=== PATIENT | female | born 1990 | race Caucasian/White ===

== ENCOUNTER 2020-08-17 15:55 | Emergency (ER) | payer BC, SELFPAY ==
[~2020-08-17 15:55] MED LIST: Iopamidol-370 76% 500 ML 1 ML ONE
[2020-08-17 17:53] LABS: #Basophils 0.1 thou/uL (0.0-0.2); #Eosinphils 0.4 thou/uL (0.0-0.7); #Lymphocytes 4.2 thou/uL (1.20-3.40); #Monocytes 1.1 thou/uL (0.11-0.59); #Neutrophils 10.3 thou/uL (1.40-6.50); %Basophils 0.7 % (0.0-1.0); %Eosinophils 2.6 % (0.0-10.0); %Monocytes 6.8 % (0.0-10.0); %Neutrophils 63.8 % (42.0-75.0); Hemoglobin 14.5 g/dL (12.0-16.0); Mean Corpuscular HGB CONC 34.5 g/dL (32.0-36.0); Mean Corpuscular Hemoglobin 34.8 pg (27.0-31.0); Mean Platelet Volume 7.5 fL (7.4-10.4); Platelet Count 324 thou/uL (130-400); RBC Distribution Width 12.2 % (11.5-14.5); Red Blood Cell (RBC) Count 4.16 mill/uL (4.20-5.40); White Blood Cell (WBC) Count 16.1 thou/uL (4.8-10.8)
[2020-08-17 18:09] LABS: BHCG - Serum Negative (NEGATIVE); Pregs Control Background? CLEAR/WHITE (CLR/WHITE); Pregs Control Bar Appear? YES (CONTROL BAR)
[2020-08-17 18:18] LABS: ALT (SGPT) 14 U/L (8-55); AST (SGOT) 17 U/L (5-34); Albumin 3.9 g/dL (3.5-5.0); Alkaline Phosphatase 112 U/L (40-110); Anion Gap 15 mmol/L (10-20); BUN (Urea Nitrogen) 8 mg/dL (7.0-18.7); Bilirubin, Total 0.4 mg/dL (0.2-1.2); Calc. Creatinine Clearance 0 mL/min (70-130); Calcium 8.5 mg/dL (7.8-10.44); Carbon Dioxide 23 mmol/L (22-29); Chloride 107 mmol/L (98-107); Globulin 3.3 g/dL (2.4-3.5); Glucose 88 mg/dL (70-105); Potassium 3.5 mmol/L (3.5-5.1); Protein, Total 7.2 g/dL (6.0-8.3); Sodium 141 mmol/L (136-145)
[2020-08-17 18:38] LABS: Bilirubin Negative (Negative); Blood, Urine 1+ (Negative); Clarity Extra Turbid (Clear); Glucose, Urine (Dipstick) Normal (Negative); Ketone, Urine Negative (Negative); Leukocyte 500 Leu/uL (Negative); Nitrite Negative (Negative); Protein, Urine (Dipstick) 200 mg/dL (Neg-Trace); Specific Gravity, Urine 1.026 (1.002-1.036); Squamous Epithelial None Seen HPF (0-3); WBC/HPF Greater than 50 HPF (0-3)
[2020-08-17 18:43] LABS: Bacteria/HPF 1+ HPF (None Seen)
[2020-08-17] MEDS ORDERED: cefTRIAXone\\ROCEPHIN 1 GM VIAL ONE (19:39)
[2020-08-17] MEDS ORDERED: Ondansetron PF 4 MG/2 ML Vial ONE (20:13)
[2020-08-17] MEDS ORDERED: Morphine 4 MG/ML VIAL ONE (20:13)
--- NOTE | 2020-08-17 21:46 | CT ---
CT ABDOMEN AND PELVIS WITH IV CONTRAST 08/17/2020 CLINICAL INFORMATION: Right lower quadrant abdominal pain. COMPARISON: 09/02/2015. Technique: Multiple contiguous axial CT images are obtained through the abdomen and pelvis with IV contrast. Cor onal reformatted images are provided. FINDINGS: Lower Chest: Lung bases are clear. Vessels: Abdominal aorta is normal in caliber. Abdomen: Portal vein:Patent Gallbladder: Within normal limits for CT imaging. Liver: within normal limits. Spleen: within normal limits. Pancreas: within normal limits. Adrenals: within normal limits. Kidneys: There is suggestion of mild renal cortical thinning on the left, and the left kidney is smal ler in size compared to the right. However, this is a stable finding. There is no hydronephrosis Bowel: Normal caliber. On oval-shaped radiopaque density is seen in the ascending colon likely due to ingested material. Appendix: The appendix is visualized and normal in caliber. Peritoneum: No ascites or free air; no fluid collection. Mesentery and Retroperitoneum: No enlarged mesenteric or retroperitoneal lymph nodes. Abdominal Wall: within normal limits. Pelvis: Reproductive Organs: A 2 cm hypodense lesion with enhancing rim is present in the left ovary which ma y represent a small involuting cyst. A few tiny subcentimeter hypodense foci are seen within the region of the uterine fundus also seen on study of 06/30/2016 and could represent tiny uterine fibroi ds. Bladder: within normal limits. Bones: No suspicious lytic or sclerotic osseous lesions. IMPRESSION: 1. No acute findings in the abdomen or pelvis. 2. Incidental findings as described above.
[2020-08-17] MEDS ORDERED: HYDROcodone/Acetaminophen 5/325 mg Tablet ONE (22:18)
== END 2020-08-17 22:22 | disposition home or self-care (01) ==
LOC: ERS 15:55
DX: N39.0 Urinary tract infection, site not specified (principal); Z79.899 Other long term (current) drug therapy; I10 Essential (primary) hypertension; F17.210 Nicotine dependence, cigarettes, uncomplicated
CPT/HCPCS: 36415; 74177; 80053; 81003; 81015; 84703; 85025; 87086; 96365; 96375; J0696; J2270; J2405; Q9967

== ENCOUNTER 2022-02-11 21:15 | Emergency (ER) | payer BC, SELFPAY ==
[2022-02-12 00:02] LABS: #Basophils 0.1 thou/uL (0.0-0.2); #Eosinphils 0.3 thou/uL (0.0-0.7); #Lymphocytes 3.1 thou/uL (1.20-3.40); #Monocytes 0.7 thou/uL (0.11-0.59); #Neutrophils 7.6 thou/uL (1.40-6.50); %Basophils 0.9 % (0.0-1.0); %Eosinophils 2.3 % (0.0-10.0); %Lymphocytes 25.9 % (21.0-51.0); %Monocytes 5.8 % (0.0-10.0); Hemoglobin 15.3 g/dL (12.0-16.0); Mean Corpuscular HGB CONC 34.6 g/dL (32.0-36.0); Mean Platelet Volume 6.9 fL (7.4-10.4); Platelet Count 383 thou/uL (130-400); RBC Distribution Width 12.9 % (11.5-14.5); Red Blood Cell (RBC) Count 4.25 mill/uL (4.20-5.40); White Blood Cell (WBC) Count 11.7 thou/uL (4.8-10.8)
[2022-02-12 00:23] LABS: ALT (SGPT) 10 U/L (8-55); AST (SGOT) 18 U/L (5-34); Albumin 3.8 g/dL (3.5-5.0); Alkaline Phosphatase 98 U/L (40-110); Anion Gap 16 mmol/L (10-20); BUN (Urea Nitrogen) 8 mg/dL (7.0-18.7); Bilirubin, Total 0.3 mg/dL (0.2-1.2); Calc. Creatinine Clearance 0 mL/min (70-130); Calcium 9.1 mg/dL (7.8-10.44); Carbon Dioxide 22 mmol/L (22-29); Chloride 105 mmol/L (98-107); Estimated GFR 100; Globulin 3.5 g/dL (2.4-3.5); Glucose 97 mg/dL (70-105); Magnesium 1.7 mg/dL (1.6-2.6); Potassium 3.8 mmol/L (3.5-5.1); Protein, Total 7.3 g/dL (6.0-8.3); Sodium 139 mmol/L (136-145)
[2022-02-12] MEDS ORDERED: diphenhydrAMINE 50 MG/ML VIAL ONE (00:42)
[2022-02-12] MEDS ORDERED: Ketorolac Tromethamine 30 MG/ML VIAL ONE (00:43)
[2022-02-12] MEDS ORDERED: Metoclopramide HCl 10 MG/2 ML VIAL ONE (00:43)
== END 2022-02-12 02:25 | disposition home or self-care (01) ==
LOC: ERS 21:15
DX: G62.9 Polyneuropathy, unspecified (principal); H53.8 Other visual disturbances; I10 Essential (primary) hypertension; K21.9 Gastro-esophageal reflux disease without esophagitis; F17.210 Nicotine dependence, cigarettes, uncomplicated; Z79.899 Other long term (current) drug therapy
CPT/HCPCS: 36415; 80053; 83735; 85025; 96361; 96374; 96375; J1200; J1885; J2765

== ENCOUNTER 2024-07-15 01:26 | Inpatient (IN) | payer BC ==
[2024-07-15 02:51] VITALS: BMI 28.1
[2024-07-15] MEDS ORDERED: Ondansetron PF 4 MG/2 ML Vial IVP PRN (03:25)
[2024-07-15] MEDS ORDERED: Ondansetron ODT 4 MG TAB PO PRN (03:25)
[2024-07-15] MEDS ORDERED: cefTRIAXone\\ROCEPHIN 1 GM in Sodium Chloride 0.9% 100 ML IVPB SCH (03:30)
[2024-07-15] MEDS ORDERED: Electrolyte Replacement Protocol 1 EACH FS PRN (03:45)
[2024-07-15] MEDS ORDERED: cefTRIAXone\\ROCEPHIN 2 GM in Sodium Chloride 0.9% 100 ML IVPB SCH (04:00)
[2024-07-15] MEDS ORDERED: Albuterol 200 PUFF (6.7GM INHALER) INH PRN (04:22)
[2024-07-15] MEDS: Acetaminophen 325 MG TAB PO PRN (04:25)
[2024-07-15 04:36] LABS: #Basophils 0.04 10x3/uL (0.0-0.2); %Basophils 0.2 % (0.0-1.0); %Eosinophils 0.9 % (0.0-10.0); %Lymphocytes 9.3 % (21.0-51.0); %Neutrophils 82.9 % (42.0-75.0); Hematocrit 33.5 % (36.0-47.0); Hemoglobin 10.7 g/dL (12.0-16.0); Mean Corpuscular HGB CONC 31.9 g/dL (32.0-36.0); Mean Corpuscular Hemoglobin 27.9 pg (27.0-31.0); Mean Corpuscular Volume 87.5 fL (78.0-98.0); Mean Platelet Volume 9.5 fL (7.4-10.4); Platelet Count 436 10x3/uL (130-400); RBC Distribution Width 15.9 % (11.5-14.5); Red Blood Cell (RBC) Count 3.83 mill/uL (4.20-5.40)
[2024-07-15 04:54] LABS: Anion Gap 14 mmol/L (10-20); BUN (Urea Nitrogen) 12 mg/dL (7.0-18.7); Calc. Creatinine Clearance 89 mL/min (70-130); Calcium 7.9 mg/dL (7.8-10.44); Carbon Dioxide 26 mmol/L (22-29); Chloride 103 mmol/L (98-107); Estimated GFR 56; Glucose 101 mg/dL (70-105); Magnesium 1.4 mg/dL (1.6-2.6); Potassium 2.7 mmol/L (3.5-5.1); Sodium 140 mmol/L (136-145)
[2024-07-15] MEDS ORDERED: Magnesium Sulfate 4 GM in Sodium Chloride 0.9% 250 ML 250 ML IVPB SCH (06:00)
[2024-07-15] MEDS: Mometasone 100 MCG/Formoterol 5 MCG 120 PUFF INHALER INH SCH (08:10)
[2024-07-15] MEDS ORDERED: Morphine 2 MG/ML VIAL SLOW IVP PRN (09:44)
[2024-07-15] MEDS: Enoxaparin 40 MG (0.4 mL) SYRINGE SC SCH (10:06)
[2024-07-15] MEDS: Potassium Chloride 20 MEQ TAB PO SCH ×2 (10:07→13:52)
[2024-07-15] MEDS: Magnesium Sulfate In Water 4 GM in Premix 1 BAG IVPB SCH ×2 (10:21→10:22)
[2024-07-15] MEDS: HYDROcodone/Acetaminophen 5/325 mg Tablet PO PRN (10:22)
[2024-07-15] MEDS: Sodium Chloride 0.9% 1,000 ML IV SCH (13:52)
[2024-07-15] MEDS: FLU (Fluarix Triv) TS24-25(6MOS UP)/PF 45 MCG/0.5 ML Syringe IM ONE (17:06)
[2024-07-15] MEDS: Montelukast Sodium 10 mg Tablet PO SCH (21:11)
[2024-07-15] MEDS: Pregabalin 75 MG CAP PO SCH (21:11)
[2024-07-15] MEDS: cefTRIAXone\\ROCEPHIN 2 GM in Sodium Chloride 0.9% 100 ML IVPB SCH (21:12)
[2024-07-16 05:54] LABS: #Basophils 0.03 10x3/uL (0.0-0.2); %Basophils 0.2 % (0.0-1.0); %Eosinophils 4.5 % (0.0-10.0); %Lymphocytes 13.3 % (21.0-51.0); %Monocytes 7.5 % (0.0-10.0); %Neutrophils 73.9 % (42.0-75.0); Hematocrit 29.1 % (36.0-47.0); Hemoglobin 9.4 g/dL (12.0-16.0); Mean Corpuscular HGB CONC 32.3 g/dL (32.0-36.0); Mean Corpuscular Hemoglobin 28.2 pg (27.0-31.0); Mean Corpuscular Volume 87.4 fL (78.0-98.0); Mean Platelet Volume 9.7 fL (7.4-10.4); Platelet Count 362 10x3/uL (130-400); Red Blood Cell (RBC) Count 3.33 mill/uL (4.20-5.40)
[2024-07-16 06:16] LABS: Anion Gap 14 mmol/L (10-20); BUN (Urea Nitrogen) 9 mg/dL (7.0-18.7); Calc. Creatinine Clearance 100 mL/min (70-130); Calcium 7.8 mg/dL (7.8-10.44); Carbon Dioxide 21 mmol/L (22-29); Chloride 105 mmol/L (98-107); Estimated GFR 64; Glucose 136 mg/dL (70-105); Sodium 137 mmol/L (136-145)
[2024-07-16] MEDS: Potassium Chloride 20 MEQ TAB PO SCH (08:12)
[2024-07-16] MEDS: Venlafaxine HCl XR 150 MG CAP PO SCH (08:13)
[2024-07-16] MEDS: Pantoprazole DR 40 MG TAB PO SCH (08:13)
[2024-07-16] MEDS: Magnesium 2 GM/50 ML(in water) 2 GM in Premix 1 BAG IVPB SCH (08:14)
[2024-07-16] MEDS: Sulfameth/Trimethoprim DS 800-160mg TAB PO SCH (11:13)
[2024-07-16 16:19] VITALS: BP 97/62; TEMP 98.5
== END 2024-07-16 17:00 | disposition home or self-care (01) | DRG 690 ==
LOC: PCU 02:31
PROVIDERS: ADMIT Student in an Organized Health Care Education/Training Program; ATTEND Family Medicine
DX: N12 Tubulo-interstitial nephritis, not specified as acute or chronic (principal); J45.909 Unspecified asthma, uncomplicated; N17.9 Acute kidney failure, unspecified; F41.9 Anxiety disorder, unspecified; K21.9 Gastro-esophageal reflux disease without esophagitis; F17.210 Nicotine dependence, cigarettes, uncomplicated; B96.20 Unspecified Escherichia coli [E. coli] as the cause of diseases classified elsewhere; N20.0 Calculus of kidney; I10 Essential (primary) hypertension; Z98.51 Tubal ligation status; Z88.8 Allergy status to other drugs, medicaments and biological substances; Z88.1 Allergy status to other antibiotic agents; Z91.030 Bee allergy status; Z91.048 Other nonmedicinal substance allergy status; Z91.040 Latex allergy status
CPT/HCPCS: 36415; 74176; 76705; 80048; 83735; 85025; 94664; J0696; J1650; J3475; J7050